=== PATIENT | female | born 1990 | race Caucasian/White ===

== ENCOUNTER → 2023-08-23 15:01 | Outpatient (CLI) | payer OTHER, SELFPAY ==
--- NOTE | ~2023-08-23 | US_ITS ---
EXAMINATION: US OB <= 14 weeks fetus DATE: 08/23/2023 15:24 INDICATION: . Uncertain dates. TECHNIQUE: Real-time transabdominal pelvic ultrasound was performed. COMPARISON: None. FINDINGS: The uterus measures 12.2 x 6.9 x 4.3 cm. There is an intrauterine gestational sac. A yolk sac is iden tified. The crown rump length measures 1.6 cm, which correlates with an estimated gestational age of 8 weeks and 0 day(s) (+/-) 5 day(s). heart motion is identified measuring 178 beats per minute (bpm) by M-mode Doppler. The right ovary is not visualized. The left ovary measures 3.9 x 5.2 x 3.6 cm. There is a 3.1 cm corpus luteum cyst in left ovary. There is no free fluid in the pelvis. IMPRESSION: 1. Single living intrauterine gestation with estimated date of delivery of 04/03/2024. Reviewed, dictated and finalized at location E. INTEGRATION DEVELOPER IMPRESSION: 1. Single living intrauterine gestation with estimated date of delivery of 03/09.
== END ==
PROVIDERS: PCP Obstetrics & Gynecology; Visit Provider Obstetrics & Gynecology
DX: Z34.80 Encounter for supervision of other normal pregnancy, unspecified trimester (principal)
CPT/HCPCS: 76801

== ENCOUNTER 2023-09-21 09:51 | Emergency (ER) | payer OTHER, SELFPAY ==
--- NOTE | 2023-09-21 09:57 | ED.URI ---
HPI - URI/Sore Throat General Chief Complaint: Upper Respiratory Infection Stated Complaint: Shortness of Breath, Congestion,Cough,Bodyache Time Seen by Provider: 09/21/23 09:58 Source: patient Mode of arrival: ambulatory Limitations: no limitations History of Present Illness HPI Narrative: Sheridan is a 32-year-old female patient presenting to the clinic today with complaints of shortness of breath, cough, congestion, and body aches x3 days. She reports this has been going on since Tuesday. Denies any chest pain but does have some slight shortness of breath upon exertion. Patient is 12 weeks . Heart rate is 76 beats per minute, blood pressure is 111/77 with in SpO2 of 100% on room air. Patient is able to speak in full sentences. MD elicited complaint: cough, nasal congestion and other (Shortness of breath, body aches) Related Data Home Medications Medication Instructions Recorded Confirmed No Home Medications 09/21/23 09/21/23 Allergies Allergy/AdvReac Type Severity Reaction Status Date / Time No Known Allergies Allergy Verified 09/21/23 09:58 Review of Systems Review of Systems: Pertinent positives per HPI. Patient denies any fever, chills, rash, headache, visual changes, dizziness, chest pain, palpitations, nausea, vomiting, diarrhea, constipation, abdominal pain, or any urinary issues. [facility] Past Medical History Medical History Cluster headaches Surgical History Surgical History History of gynecological procedure 07/10/2020 - mirena iud insertion 04/25/2023 Removal History of tonsillectomy Hx of appendectomy Family History Family History Other Intracranial aneurysm Malignant carcinoid tumor of lung Social History Social History Smoking status: Never smoker Alcohol intake: current Alcohol use details: socially Substance use: never Substance use type: does not use Lack of Transportation: No Lack of Food: Never True Current Housing: I Have Housing Concerned About Future Housing: No Difficulty Paying Gas/Electric Bills: No Difficulty Paying for Meds: No Education: Bachelor's Degree Difficulty w/ Childcare or Family Care: No Living arrangements: with family Occupation/Education: occupation 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 There is no relevant family history pertinent to the patient complaint. Exam Narrative: General: Well-developed, well nourished, in no apparent distress Head: Normocephalic, atraumatic Eyes: Pupils equally round and reactive to light bilaterally, EOM intact, sclera and conjunctive clear, no discharge, lids normal Ears: TMs intact and clear, ear canals clear, no drainage, grossly hearing normal. Nose: Nares patent, no discharge, no inflammation, no sinus tenderness. Mouth: Oral pharynx without lesions or masses, good dentition, MMM. Neck: Supple, trachea midline, no enlargement of anterior or posterior cervical nodes, no thyroid masses or goiter palpable. Cardio: Regular rate and rhythm, s1 and s2 normal, no murmur appreciated. Resp: Clear to auscultation bilaterally, no rhonchi, rales, wheezing or rubs Course Course Emergency Course: Portions of this record may have been created with voice recognition software. Level of Care: Express Care Visit Vital Signs Vital signs: Vital signs reviewed MDM - URI/Sore Throat MDM Narrative Medical decision making narrative: At the time of visit patient
[2023-09-21 10:04] VITALS: BP 111/77; PULSE 76; RESP 18; TEMP 36.8; O2SAT 100
== END 2023-09-21 10:20 | disposition home or self-care (01) ==
PROVIDERS: Emergency Provider Nurse Practitioner Family; PCP Obstetrics & Gynecology
DX: O98.511 Other viral diseases complicating pregnancy, first trimester (principal); U07.1 COVID-19; Z3A.12 12 weeks gestation of pregnancy
CPT/HCPCS: 87426; 87804; 99213; G0463

== ENCOUNTER 2024-03-06 10:02 | Inpatient (IN) | payer OTHER, SELFPAY ==
[2024-03-06] VITALS (164 sets, daily range): BP systolic 82–138; BP diastolic 46–118; PULSE 73–106; RESP 16–18; TEMP 36.8–37.3; O2SAT 95–100; BMI 31.4
[2024-03-06] MEDS: LACTATED RINGERS 1,000 ML 125 ML IV CONT ×2 (10:52→15:01)
[2024-03-06] MEDS: OXYTOCIN 30 UNITS/NS 500 ML 30 UNITS/500 ML BAG IV CONT (10:52)
[2024-03-06] MEDS: AMPICILLIN 2 GM/NS 100 ML 2 GM/100 ML BAG IVPB (10:53)
[2024-03-06 10:57] LABS: Basophils Percent Auto 0.3 % (0.2-1.2); Eosinophils Absolute Auto 0.1 K/mm3 (0-0.3); Eosinophils Percent Auto 0.8 % (0-4.4); Hematocrit 34.7 % (37.0-47.0); Hemoglobin 11.1 g/dL (12.0-15.0); Immature Granulocyte Absolute 0.16 K/mm3 (0.00-0.031); Immature Granulocyte Percent A 1.2 % (0-0.5); Lymphocytes Absolute Auto 2.12 K/mm3 (0.9-3.2); Lymphocytes Percent Auto 16.1 % (18.3-44.2); Mean Corpuscular Hemoglobin 29.8 pg (26-34); Mean Platelet Volume 9.4 fl (7.4-10.4); Monocytes Absolute Auto 0.6 K/mm3 (0.1-0.6); Monocytes Percent Auto 4.7 % (2.6-8.5); Neutrophils Absolute Auto 10.1 K/mm3 (1.3-6.7); Neutrophils Percent Auto 76.9 % (45.5-73.1); Platelet Count Result 271 k/mm3 (150-375); Red Blood Count 3.73 M/mm3 (4.2-5.4); Red Cell Distribution Width 13.7 % (11.5-14.5); White Blood Count 13.2 K/mm3 (4.5-10.0)
--- NOTE | 2024-03-06 11:03 | LDADM ---
This patient, Sheridan Stone, was admitted to Labor/Delivery/Recovery 105 on 03/06/24 at 10:02. Plans for labor, pain management and were discussed with patient. Patient/family oriented to hospital policies and general routines including ID bracelet, bed and alarms, visiting hours, pain management, procedures, bathroom and other care routines, personal items, smoking policy, room service/diet and guest tray routines, security routines, and visiting hours. Patient/Family are encouraged to report perceived risks to care and to ask questions if they do not understand what they are told or what they should do. See OBIX for further documentation.
[2024-03-06 11:38] LABS: Rapid Plasma Reagin Non-Reactive (NonReactive)
[2024-03-06 11:44] LABS: HIV 1/2 Ab P24 Ag Result Negative (Negative)
--- NOTE | 2024-03-06 11:58 | PM.IMHP ---
H&P: HPI History of Present Illness Date/Time: 03/06/24 11:58 Chief Complaint: rupturedMembranes at 36 weeks Narrative: 33-year-old 4 para 2 left was removed in 2022, EDC 04/03 4, presents at 36 weeks gestation with spontaneous rupture membranes prior to admission. That about 0 200. Her has been uncomplicated her group B strep is pending at this point. She would therefore be prophylaxed with antibiotics PMFSH Past Medical History Medical History Cluster headaches Surgical History Surgical History History of gynecological procedure 07/10/2020 - mirena iud insertion 04/25/2023 Removal History of tonsillectomy Hx of appendectomy Family History Family History Mother Cerebrovascular accident Other Intracranial aneurysm Malignant carcinoid tumor of lung Social History Social History Smoking status: Never smoker Alcohol intake: current Alcohol use details: socially Substance use: never Substance use type: does not use Do You Feel Safe in your Home?: No Lack of Transportation: No Lack of Food: Never True Current Housing: I Have Housing Concerned About Future Housing: No Difficulty Paying Gas/Electric Bills: No Difficulty Paying for Meds: No Currently Unemployed: No Education: Bachelor's Degree Difficulty w/ Childcare or Family Care: No Living arrangements: with family Occupation/Education: occupation 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 Gender identity (if verbalized by the patient): Female Sexual Orientation (if Verbalized by the Patient): Straight or Heterosexual Spiritual care concerns: No Meds Home Medications and Allergies Home Medications Medication Instructions Recorded Confirmed Type vits no.126-ferrous fum 1 tablet PO DAILY 03/05/24 03/05/24 History 28 mg iron-folic acid 800 mcg tablet (Classic ) Allergies Allergy/AdvReac Type Severity Reaction Status Date / Time No Known Allergies Allergy Verified 03/05/24 12:25 Vital Signs Vital Signs - 24 hr 03/06/24 11:02 03/06/24 11:01 Temperature 98.8 F Pulse Rate 106 H Respiratory Rate 18 Blood Pressure 117/70 Oxygen Delivery Room Air Exam Const: General: cooperative, healthy appearing and comfortable Nutritional Appearance: average body habitus Orientation/consciousness: oriented to person, oriented to place and oriented to time Resp: Effort & Inspection: normal respiratory effort Cardio: Rate: regular rate Rhythm: regular rhythm Heart sounds: S1 normal heart sound present and S2 normal heart sound present GI: Inspection: normal to inspection : External Female Exam: normal external appearance Speculum Exam - Vagina: normal appearance of the vagina Speculum Exam - Cervix: normal appearance of the cervix ( cervix 50/2. Clear fluid seen. FHTs were reassuring) H&P: Results Labs Labs: Short CBC 03/06/24 Range/Units 10:33 WBC 13.2 H (4.5-10.0) K/mm3 Hgb 11.1 L (12.0-15.0) g/dL Hct 34.7 L (37.0-47.0) % Plt Count 271 (150-375) k/mm3 Assessment and Plan Assessment and plan (1) premature rupture of membranes: Code(s): O42.919 - premature rupture of membranes, unspecified as to length of time between rupture and onset of labor, unspecified trimester Status: Acute (2) Observation of child for suspected group B streptococcal infection, mother's Group B status unknown: Code(s): Z03.89 - Encounter for observation for other suspected diseases and conditions ruled out Status: Acute Assessment and Plan: group B strep prophylaxis will be undertaken. Spontaneous vaginal delivery is expected. Will begin Pit
--- NOTE | 2024-03-06 14:42 | PM.OBPNLAB ---
Pain Control Date/time seen: 03/06/24 14:42 Pain control: tolerating well and epidural Pelvic Exam Amniotic membrane status: Leaking
--- NOTE | 2024-03-06 15:06 | WPDANESEPPF ---
Anes - Initial Pre Proc Eval Procedure: labor epidural Date/Time: 03/06/24 15:06 Surgeon: Brien Tamayo MD Pre Op Diagnosis: labor pain Pre Op Diagnosis: Leaking Patient Data Age: 33 Gender: F Height: 1.57 m Weight: 78 kg Last Vital Signs Temp 37.3 C 03/06/24 13:15 Pulse 82 03/06/24 14:30 Resp 16 03/06/24 13:15 BP 111/63 03/06/24 14:30 Pulse Ox 96 03/06/24 14:40 O2 Del Method Room Air 03/06/24 11:02 Allergies Allergy/AdvReac Type Severity Reaction Status Date / Time No Known Allergies Allergy Verified 03/05/24 12:25 Home Medications Medication Instructions Recorded Confirmed Type vits no.126-ferrous fum 1 tablet PO DAILY 03/05/24 03/05/24 History 28 mg iron-folic acid 800 mcg tablet (Classic ) Laboratory Tests 03/06/24 10:33 WBC 13.2 H K/mm3 (4.5-10.0) RBC 3.73 L M/mm3 (4.2-5.4) Hgb 11.1 L g/dL (12.0-15.0) Hct 34.7 L % (37.0-47.0) MCV 93.0 fl (80-100) MCH 29.8 pg (26-34) MCHC 32.0 g/dl (32-36) RDW 13.7 % (11.5-14.5) Plt Count 271 k/mm3 (150-375) MPV 9.4 fl (7.4-10.4) Immature Gran % (Auto) 1.2 H % (0-0.5) Neut % (Auto) 76.9 H % (45.5-73.1) Lymph % (Auto) 16.1 L % (18.3-44.2) Lawrence % (Auto) 4.7 % (2.6-8.5) Eos % (Auto) 0.8 % (0-4.4) Baso % (Auto) 0.3 % (0.2-1.2) Lymph # (Auto) 2.12 K/mm3 (0.9-3.2) Lawrence # (Auto) 0.6 K/mm3 (0.1-0.6) Eos # (Auto) 0.1 K/mm3 (0-0.3) Baso # (Auto) 0.0 K/mm3 (0.0-0.1) Abs Immat Gran (auto) 0.16 H K/mm3 (0.00-0.031) Absolute Neuts (auto) 10.1 H K/mm3 (1.3-6.7) Absolute Nucleated RBC 0.000 K/mm3 (0.0-0.012) Nucleated RBC % 0.0 % (0.0-0.2) RPR Non-reactive (NonReactive) HIV 1&2 Ab/P24 Ag 4thGn Negative (Negative) Blood Type A Positive Antibody Screen Negative Patient hx anesthesia problems: none Family hx anesthesia problems: none Results Review: All pre-operative results and documents have been reviewed as part of the pre-operative evaluation. [facility] Past Medical History Medical History Cluster headaches Surgical History Surgical History History of gynecological procedure 07/10/2020 - mirena iud insertion 04/25/2023 Removal History of tonsillectomy Hx of appendectomy Family History Family History Mother Cerebrovascular accident Other Intracranial aneurysm Malignant carcinoid tumor of lung Social History Social History Smoking status: Never smoker Alcohol intake: current Alcohol use details: socially Substance use: never Substance use type: does not use Do You Feel Safe in your Home?: No Lack of Transportation: No Lack of Food: Never True Current Housing: I Have Housing Concerned About Future Housing: No Difficulty Paying Gas/Electric Bills: No Difficulty Paying for Meds: No Currently Unemployed: No Education: Bachelor's Degree Difficulty w/ Childcare or Family Care: No Living arrangements: with family Occupation/Education: occupation 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 Informed Consent: The patient's anesthetic plan and its attend
[2024-03-06] MEDS: AMPICILLIN 1 GM/NS 50 ML 1 GM/50 ML BAG IVPB ×3 (15:22→23:40)
[2024-03-06] MEDS: LORATADINE 10 MG TABLET PO (19:42)
[2024-03-07] VITALS (352 sets, daily range): BP systolic 92–165; BP diastolic 47–102; PULSE 72–231; TEMP 36.6–37.9; O2SAT 93–100
[2024-03-07] MEDS: CALCIUM CARBONATE (TUMS) 500 MG (200 MG ELEMENTAL) 400 MG PO (01:31)
[2024-03-07] MEDS: AMPICILLIN 1 GM/NS 50 ML 1 GM/50 ML BAG IVPB ×4 (03:41→16:28)
[2024-03-07] MEDS: diphenhydrAMINE HCl INJ 50 MG/ML VIAL 25 MG IV PUSH (05:08)
--- NOTE | 2024-03-07 06:09 | PM.OBPNLAB ---
Pain Control Date/time seen: 03/07/24 06:09 Pain control: tolerating well and epidural Pelvic Exam Dilation (cm): 4 Effacement (%): 80 station: -2 Amniotic membrane status: Leaking
[2024-03-07] MEDS: LACTATED RINGERS 1,000 ML 125 ML IV CONT ×3 (08:07→19:23)
[2024-03-07] MEDS: ACETAMINOPHEN 500 MG TABLET 1000 MG PO (08:36)
[2024-03-07] MEDS: OXYTOCIN 30 UNITS/NS 500 ML 30 UNITS/500 ML BAG IV CONT (11:21)
--- NOTE | 2024-03-07 11:38 | PM.OBPNLAB ---
Pain Control Date/time seen: 03/07/24 11:38 Pain control: tolerating well and epidural Pelvic Exam Dilation (cm): 6 Effacement (%): 80 station: -2 Amniotic membrane status: Leaking
--- NOTE | 2024-03-07 11:51 | PM.OBPNLAB ---
Pain Control Date/time seen: 03/07/24 11:51 Pain control: tolerating well and epidural Pelvic Exam Dilation (cm): 6 Effacement (%): 80 station: -2 Amniotic membrane status: Leaking
--- NOTE | 2024-03-07 21:14 | PM.OBPRVD ---
OB - Vaginal Delivery Note Procedure Delivery date: 03/07/24 Events: Premature Rupture of Membranes Induction method: None Delivery augmentation: Pitocin Delivery monitor: External FHT and Internal Uterine Route of delivery: Episiotomy description: None Laceration Description: None Quantitative Blood Loss (ml): 61 Anesthesia type: Epidural Disposition: Floor Baby Date of : 03/07/24 Time of : 20:51 Gestational Age by Date: 36 Infant gender: Male presentation: vertex position: Right Occiput Anterior Placenta delivery description: Spontaneous Cord Vessel Description: 3 Vessels score one minute: 9 score five minutes: 9
[2024-03-07] MEDS: ACETAMINOPHEN 500 MG TABLET 1000 MG (21:15)
--- NOTE | 2024-03-07 21:15 | PM.DS ---
DS: Admitting Diagnosis Discharge Date 03/09/2024 Admitting Diagnosis rupture membranes DS: Discharge Diagnosis Discharge Diagnosis (1) premature rupture of membranes: Code(s): O42.919 - premature rupture of membranes, unspecified as to length of time between rupture and onset of labor, unspecified trimester Status: Acute (2) Observation of child for suspected group B streptococcal infection, mother's Group B status unknown: Code(s): Z03.89 - Encounter for observation for other suspected diseases and conditions ruled out Status: Acute DS: Summary Hospital Course Reason for hospitalization: patient was admitted at 36 weeks gestation with spontaneous rupture membranes and unknown group B strep status. Hospital Course: Pitocin augmentation was begun she had a very long labor with mildly elevated blood pressures. She did receive 8 doses of ampicillin prophylactically. She spontaneously delivered the baby on 03/07/2024 at 8:51 p.m.. Hospital course thereafter was unremarkable. She remained afebrile. She was up, voiding without difficulty, eating regular diet, ambulating, generally without complaints Time Spent with Patient Time attestation: Total time spent providing and/or coordinating discharge services: Exam Const: General: cooperative, healthy appearing and comfortable Nutritional Appearance: average body habitus Orientation/consciousness: oriented to person, oriented to place and oriented to time Resp: Effort & Inspection: normal respiratory effort Cardio: Rate: regular rate Rhythm: regular rhythm Heart sounds: S1 normal heart sound present and S2 normal heart sound present GI: Inspection: normal to inspection Discharge Plan Discharge Attending physician on discharge: Brien Hilario Discharging Clinician: Brien Hilario Patient Disposition: Home, Self-Care Activity: may shower and no straining Diet: heart healthy Wound Care Instructions: follow printed instructions Patient Instructions: Antibiotic Form Stand Alone Forms: General Discharge Information Follow-up/Referrals: Brien Hilario MD [Physician] - Discharge Medications: Continued Classic 28 mg iron- 800 mcg Tablet 1 tablet PO DAILY Date of admission: 03/06/24 10:02 Primary Care Provider: Reji Mayfield Admitting Provider: Brien Hilario Attending physician on admission: Brien Hilario Condition: Stable
[2024-03-07] MEDS: OXYTOCIN 30 UNITS/NS 500 ML 30 UNITS/500 ML BAG 125 UNITS IV CONT (21:18)
[2024-03-07] MEDS: BENZOCAINE 20% AER SPR (*SP) 56 GM CAN 1 SPRAY TOPICAL (22:58)
[2024-03-07] MEDS: WITCH HAZEL 40 PADS 1 PAD TOPICAL (22:58)
[2024-03-08] VITALS: BP 123/60; PULSE 84; RESP 16; TEMP 37; O2SAT 98
[2024-03-08] MEDS: IBUPROFEN 600 MG TABLET PO ×2 (00:06→19:01)
[2024-03-08 04:00] VITALS: BP 117/53; PULSE 71; RESP 18; TEMP 36.8; O2SAT 99
--- NOTE | 2024-03-08 04:48 | PM.OBPNVD ---
OB - PN: Subj Subjective Date/time seen: 03/08/24 04:48 Patient comments: no complaints and pain well controlled baby status: doing well OB - PN: Obj Data Labs 03/06/24 10:33 OB - PN A/P Plan day: 1 Plan: routine care Time Spent With Patient Time: Total time spent is greater than 50% in coordination of care (as documented) at patient's floor/unit and/or counseling patient: Time with patient: less than 15 minutes Exam Const: General: cooperative, healthy appearing and comfortable Nutritional Appearance: average body habitus Orientation/consciousness: oriented to person, oriented to place and oriented to time Resp: Effort & Inspection: normal respiratory effort Cardio: Rate: regular rate Rhythm: regular rhythm Heart sounds: S1 normal heart sound present and S2 normal heart sound present GI: Inspection: normal to inspection
[2024-03-08 05:26] LABS: Hematocrit 33.6 % (37.0-47.0); Hemoglobin 10.5 g/dL (12.0-15.0)
[2024-03-08] MEDS: DOCUSATE SODIUM 100 MG CAPSULE PO (07:11)
[2024-03-08] MEDS: MULTIVIT/MIN/PREN/FOL AC/IRON TABLET 1 TAB PO (07:12)
[2024-03-08] MEDS: ACETAMINOPHEN 325 MG TABLET 650 MG PO ×2 (07:12→13:21)
[2024-03-08 07:15] VITALS: BP 109/51; PULSE 77; RESP 16; TEMP 36.4; O2SAT 99
--- NOTE | 2024-03-08 12:52 | WPDANLDPN2 ---
Anes-Prog Note L&D Date/Time: 03/08/24 12:52 Neuro status: Neuro function grossly intact. Vital Signs: Last Vital Signs Temp 36.4 C L 03/08/24 07:15 Pulse 77 03/08/24 07:15 Resp 16 03/08/24 07:15 BP 109/51 L 03/08/24 07:15 Pulse Ox 99 03/08/24 07:15 O2 Del Method Room Air 03/08/24 07:15 Pain score (VAS): 0 I/O: Intake & Output 03/07/24 03/08/24 03/08/24 23:59 07:59 15:59 Intake Total 1000 Balance 1000 Patient feedback: Patient satisfied with anesthetic care.
[2024-03-08 16:15] VITALS: BP 112/62; PULSE 81; RESP 16; TEMP 37.7; O2SAT 99
[2024-03-08 20:50] VITALS: BP 119/80; PULSE 74; RESP 18; TEMP 37.1; O2SAT 100
--- NOTE | 2024-03-09 05:37 | PM.OBPNVD ---
OB - PN: Subj Subjective Date/time seen: 03/09/24 05:37 Patient comments: no complaints and pain well controlled baby status: doing well OB - PN: Obj Data Labs 03/08/24 04:18 OB - PN A/P Plan day: 2 Plan: routine care and discharge home (ncb if needed) Time Spent With Patient Time: Total time spent is greater than 50% in coordination of care (as documented) at patient's floor/unit and/or counseling patient: Time with patient: less than 15 minutes Exam Const: General: cooperative, healthy appearing and comfortable Nutritional Appearance: average body habitus Orientation/consciousness: oriented to person, oriented to place and oriented to time Resp: Effort & Inspection: normal respiratory effort Cardio: Rate: regular rate Rhythm: regular rhythm Heart sounds: S1 normal heart sound present and S2 normal heart sound present GI: Inspection: normal to inspection
[2024-03-09 07:50] VITALS: BP 110/71; PULSE 70; RESP 18; TEMP 37.2; O2SAT 98
[2024-03-09] MEDS: MULTIVIT/MIN/PREN/FOL AC/IRON TABLET 1 TAB PO (09:05)
[2024-03-09] MEDS: DOCUSATE SODIUM 100 MG CAPSULE PO (09:05)
--- NOTE | 2024-03-09 10:19 | PC.NURSE ---
Consulted with patient to assess needs related to . Patient reports that she is going to primarily bottle feed infant and denies any additional education regarding . Reported to the Primary RN.
[2024-03-12 10:32] VITALS: BP 131/80; PULSE 72; RESP 18; TEMP 37.1; O2SAT 100
== END 2024-03-09 16:00 | disposition home or self-care (01) | DRG 805 ==
LOC: ANHLDR 03-07 21:18 → ANHOB2 03-08
PROVIDERS: Admitting Provider Obstetrics & Gynecology; PCP Emergency Medicine; Visit Provider Obstetrics & Gynecology
DX: O42.013 Preterm premature rupture of membranes, onset of labor within 24 hours of rupture, third trimester (principal); O60.14X0 Preterm labor third trimester with preterm delivery third trimester, not applicable or unspecified; Z37.0 Single live birth; Z3A.36 36 weeks gestation of pregnancy
CPT/HCPCS: 36415; 84112; 85014; 85018; 85025; 86592; 86703; 86850; 86900; 86901; A9270; G0432; J0290; J1200; J2590; J2795; J7120

== ENCOUNTER 2025-01-24 13:08 | Observation (INO) | payer OTHER, SELFPAY ==
[2025-01-24] VITALS (48 sets, daily range): BP systolic 79–119; BP diastolic 57–79; PULSE 96–128; RESP 20–24; TEMP 36.8–36.9; O2SAT 96–100; BMI 29.0
--- OUTSIDE RECORDS SUMMARY | 2025-01-24 13:36 | XMS_ITS | Continuity of Care Document ---
Author Organization [facility] Address [address] [place] [address] [place] [address] Phone Care Team Providers Care Jewel Inserter Name Role Phone Reji Mayfield MD Unavailable Unavailable Allergies, Adverse Reactions, Alerts Substance Reaction Status Criticality cefaclor Active No Information Medications Medication Instructions Dosage Effective Dates (start - stop) Status Comments Adderall 20 mg tablet take 1 tablet by o ral route 2 times every day 20 MG - Active Procedures Procedure Date OFFICE/OUTPATIENT VISIT, EST PREV VISIT, EST, AGE 18-39 OFFICE/OUTPATIENT VISIT, EST PREV VISIT, EST, AGE 18-39 OFFICE/OUTPATIENT VISIT, EST OFFICE/OUTPATIENT VISIT, EST OFFICE/OUTPATIENT VISIT, EST OFFICE/OUTPATIENT VISIT, EST OFFICE/OUTPATIENT VISIT, EST OFFICE/OUTPATIENT VISIT, EST OFFICE/OUTPATIENT VISIT, EST OFFICE/OUTPATIENT VISIT, EST OFFICE/OUTPATIENT VISIT, EST PREV VISIT, EST, AGE 18-39 OFFICE/OUTPATIENT VISIT, EST OFFICE/OUTPATIENT VISIT, EST OFFICE/OUTPATIENT VISIT, EST OFFICE/OUTPATIENT VISIT, EST PREV VISIT, EST, AGE 18-39 OFFICE/OUTPATIENT VISIT, EST OFFICE/OUTPATIENT VISIT, EST OFFICE/OUTPATIENT VISIT, EST OFFICE/OUTPATIENT VISIT, EST PREV VISIT, EST, AGE 18-39 OFFICE/OUTPATIENT VISIT, EST OFFICE/OUTPATIENT VISIT, EST OFFICE/OUTPATIENT VISIT, EST OFFICE/OUTPATIENT VISIT, EST OFFICE/OUTPATIENT VISIT, EST PREV VISIT, NEW, AGE 18-39 OFFICE/OUTPATIENT VISIT, NEW Advance Directives Directive Yes / No Effective Date File Name No Information Encounters Encounter Description Practice Location Reason(s) For Visit Diagnoses Date Provider Providers Copied on Encounter [facility], [address], [place], [place], [address], [place] tel:[phone] [facility] No Information 4 Chaparro Mendoza. [address], [place], [place], [address] , [place]. tel:[phone] OFFICE/OUTPA TIENT VISIT, EST [facility], [address] [place], [place], [address], [place] tel:[phone] [facility] ADD (chief complaint) Attention deficit 4 Chaparro Mendoza. [address], [place], [place], [address] , [place]. tel:[phone] PREV VISIT, EST, AGE 18-39 [facility], [address], [place], [place], [address], [place] tel:[phone] [facility] Medicine physical (chief complaint) Encounter for general adult medical examination without abnormal findings 4 Chaparro Mendoza. [address], [place], [place], [address] , [place]. [phone] OFFICE/OUTPA TIENT VISIT, EST [facility], [address], [place], [address], [place] tel:[phone] [facility] ADD (chief complaint) Attention deficit 3 Chaparro Mendoza. [address], [place], [address] , [place]. tel:[phone] PREV VISIT, EST, AGE 18-39 [facility], [address], [place], [place], [address], [place] tel:[phone] [facility] Medicine physical (chief complaint) Encounter for general adult medical exam w abnormal findingsAttention deficit 3 Chaparro Mendoza. [address], [place], [place], [address] , [place]. tel:[phone] OFFICE/OUTPA TIENT VISIT, [facility], [address], [place], [place], [address], [place] tel:[phone] [facility] ADD (chief complaint) Attention deficit 3 Chaparro Mendoza. [address], [place], [address] , [place]. tel:[phone] OFFICE/OUTPA TIENT VISIT, EST [facility], [address], [place], [address], [place] tel:[phone] [facility] ADD (chief complaint) Attention deficit 3 Chaparro Mendoza. [address], [place], [address] , [place]. tel:[phone] OFFICE/OUTPA TIENT VISIT, [facility], [address], [place], [address], [place] tel:[phone] [facility] ADD (chief complaint) Attention deficit 3 Chaparro Mendoza. [address], [place], [address] , [place]. tel:[phone] OFFICE/OUTPA TIENT VISIT, [facility], [address], [place], [place], [address], [place] tel:[phone] [facility] ADD (chief complaint) Attention deficit 3 Chaparro Mendoza. [address], [place], [address] , [place]. tel:[phone] OFFICE/OUTPA TIENT VISIT, EST [facility], [address], [place], [address], [place] tel:[phone] [facility] ADD (chief complaint) Attention deficit 3 Chaparro Mendoza. [address], [place], [address] , [place]. tel:[phone] OFFICE/OUTPA TIENT VISIT, EST [facility], [address], [place], [place], [address], [place] tel:[phone] [facility] Medicine ADD (chief complaint) Attention deficit 3 Chaparro Mendoza. [address], [place], [address] , [place]. tel:[phone] OFFICE/OUTPA TIENT VISIT, [facility], [address], [place], [address], [place] tel:[phone] [facility] ADD (chief complaint) Attention deficit 3 Mayfield Reji. [address], [place], [address] , [place]. tel:[phone] OFFICE/OUTPA TIENT VISIT, [facility], [address], [place], [address], [place] tel:[phone] [facility] Medicine ADD (chief complaint) Attention deficit 3 Chaparro Mendoza. [address], [place], [address] , [place]. tel:[phone] PREV VISIT, EST, AGE 18-39 [facility], [address], [place], [address], [place] tel:[phone] [facility] Medicine physical (chief complaint) Encounter for general adult medical examination without abnormal findings 3 Chaparro Mendoza. [address], [place], [address] , [place]. tel:[phone] OFFICE/OUTPA TIENT VISIT, [facility], [address], [place], [address], [place] tel:[phone] [facility] ADD (chief complaint) Attention deficit 2 Mayfield Reji. [address], [place], [address] , [place]. tel: [phone] OFFICE/OUTPA TIENT VISIT, EST [facility], [address], [place], [address], [place] tel:[phone] [facility] dysuria1 (chief complaint) Acute cystitis without hematuria 2 Mayfield Reji. [address], [place], [address] , [place]. tel: [phone] OFFICE/OUTPA TIENT VISIT, [facility], [address], [place], [address], [place] tel:[phone] [facility] ADD (chief complaint) Attention deficit 2 Mayfield Reji. [address], [place], [address] , [place]. tel: [phone] OFFICE/OUTPA TIENT VISIT, EST [facility], [address], [place], [address], [place] tel:[phone] [facility] ADD (chief complaint) Attention deficit 2 Mayfield Reji. [address], [place], [address] , [place]. tel:[phone] PREV VISIT, EST, AGE 18-39 [facility], [address], [place], [address], [place] tel:[phone] [facility] physical (chief complaint) Encounter for general adult medical examination without abnormal findings 1 Mayfield Reji. [address], [place], [address] , [place]. tel:[phone] OFFICE/OUTPA TIENT VISIT, [facility], [address], [place], [address], [place] tel:[phone] [facility] ADD (chief complaint) Attention deficit 1 Chaparro Jeffery [address], [place], [address] , [place]. tel:[phone] OFFICE/OUTPA TIENT VISIT, EST [facility], [address], [place], [address], [place] tel:[phone] [facility] ADD (chief complaint) headache1 (chief complaint) weight loss1 (chief complaint) Attention deficitMigraineAbno rmal weight loss 1 Chaparro Jeffery [address], [place], [place], [address] , [place]. tel:[phone] OFFICE/OUTPA TIENT VISIT, [facility], [address], [place], [address], [place] tel:[phone] [facility] ADD (chief complaint) migraine1 (chief complaint) MigraineAttention deficit 1 Chaparro Mendoza. [address], [place], [address] , [place]. tel:[phone] OFFICE/OUTPA TIENT VISIT, EST [facility], [address], [place], [address], [place] tel:[phone] [facility] headache1 (chief complaint) ADD (chief complaint) Attention deficitMenstrual migraine, without refractory migraine, without status migrainosus 1 Chaparro Mendoza. [address], [place], [address] , [place]. tel:[phone] PREV VISIT, EST, AGE 18-39 [facility], [address], [place], [address], [place] tel:[phone] [facility] Physical (chief complaint) Encounter for general adult medical examination without abnormal findings 0 Chaparro Mendoza. [address], [place], [address] , [place]. tel:[phone] OFFICE/OUTPA TIENT VISIT, [facility], [address], [place], [address], [place] tel:[phone] [facility] migraine headache1 (chief complaint) ADD (chief complaint) Menstrual migraine, without refractory migraine, without status migrainosusAttentio n deficit 0 Chaparro Mendoza. [address], [place], [address] , [place]. [phone] OFFICE/OUTPA TIENT VISIT, [facility], [address], [place], [address], [place] tel:[phone] [facility] ADD (chief complaint) headache1 (chief complaint) Attention deficitMigraine 0 Chaparro Mendoza. [address], [place], [address] , [place]. [phone] OFFICE/OUTPA TIENT VISIT, [facility], [address], [place], [address], [place] tel:[phone] [facility] ADD (chief complaint) migraine1 (chief complaint) Attention deficitMigraine 0 Chaparro Mendoza. [address], [place], [address] , [place]. [phone] Referring Provider: Reji Mayfield [address], [place], [place], [address]. tel:[phone] OFFICE/OUTPA TIENT VISIT, [facility], [address], [place], [address], [place] tel:[phone] [facility] ADD (chief complaint) headache1 (chief complaint) MigraineAttention deficit 9 Chaparro Mendoza. [address], [place], [address] , [place]. [phone] Referring Provider: Reji Mayfield [address], [place], [place], [address]. tel:[phone] OFFICE/OUTPA TIENT VISIT, EST [facility], [address], [place], [address], [place] tel:[phone] [facility] Medicine ADD (chief complaint) migraine1 (chief complaint) Attention deficitMigraine 9 Chaparro Mendoza. [address], [place], [address] , [place]. tel:[phone] Referring Provider: Reji Mayfield [address], [place], [address]. tel:[phone] PREV VISIT, NEW, AGE 18-39 [facility], [address], [place], [address], [place] tel:[phone] [facility] Physical (chief complaint) Encounter for general adult medical exam w abnormal findingsMigraineAtt ention deficit 9 Chaparro Mendoza. [address] [facility] [address], [place], [place], [address] , [place]. tel:[phone] Referring Provider: Reji Mayfield [address] [facility] [address], [place], [place], [address]. tel:[phone] Family History Family Member Type Diagnosis Age At Onset Brother Problem (finding) Alive and well Mother Problem (finding) Alive and well Father Problem (finding) Alive and well Payers Payer name Insurance type Covered green party ID Authoriza tion(s) No Information Social History Type Description Quantity Date Captured Comments Alcohol Use Details Unknown Caffeine Use Details Unknown Tobacco Use Status No Information Smoking Status No Information Sex Female Chief Complaint And Reason For Visit No Information Plan Of Treatment Date Type Action Status Goal Tobacco cessation counseling completed Goal Tobacco cessation counseling completed Goal Tobacco cessation counseling completed Goal Special diet education compl eted History Of Present Illness Encounter Date Complaint History Of Prese nt Illness ADD Patient has ADD. Patient has inattentive type. Patient feels scatterbrained. Patient feel poor focus and difficulty completing tasks. Patient states that Adderall is helping with symptoms. Patient feels more focused. Pt feels more energy. Patient denies any headache, dry mouth, headache, chest pain. Patient denies any appetite loss. physical Pt needs annual physical pt is 12 days Pt underwent vaginal delivery Pt is NOT breast feeding Pt wants to restart adderall. Pt will start OCP soon Pt denies any other complaints ADD Patient has ADD. Patient has inattentive type. Patient feels scatterbrained. Patient feel poor focus and difficulty completing tasks. Patient states that Adderall is helping with symptoms. Patient feels more focused. Pt feels more energy. Patient denies any headache, dry mouth, headache, chest pain. Patient denies any appetite loss. Pt states that sometimes she does not feel the 2nd dose of adderall last long enough Pt is a caser teacher now physical Pt needs annual physical. Patient has ADD. Patient has inattentive type. Patient feels scatterbrained. Patient feel poor focus and difficulty completing tasks. Patient states that Adderall is helping with symptoms. Patient feels more focused. Pt feels more energy. Patient denies any headache, dry mouth, headache, chest pain. Patient denies any appetite loss. Pt denies any headache or any other complaints ADD Patient has ADD. Patient has inattentive type. Patient feels scatterbrained. Patient feel poor focus and difficulty completing tasks. Patient states that Adderall is helping with symptoms. Patient feels more focused. Pt feels more energy. Patient denies any headache, dry mouth, headache, chest pain. Patient denies any appetite loss. ADD Patient has ADD. Patient has inattentive type. Patient feels scatterbrained. Patient feel poor focus and difficulty completing tasks. Patient states that Adderall is helping with symptoms. Patient feels more focused. Pt feels more energy. Patient denies any headache, dry mouth, headache, chest pain. Patient denies any appetite loss. ADD Patient has ADD. Patient has inattentive type. Patient feels scatterbrained. Patient feel poor focus and difficulty completing tasks. Patient states that Adderall is helping with symptoms. Patient feels more focused. Pt feels more energy. Patient denies any headache, dry mouth, headache, chest pain. Patient denies any appetite loss. ADD Patient has ADD. Patient has inattentive type. Patient feels scatterbrained. Patient feel poor focus and difficulty completing tasks. Patient states that Adderall is helping with symptoms. Patient feels more focused. Pt feels more energy. Patient denies any headache, dry mouth, headache, chest pain. Patient denies any appetite loss. ADD Patient has ADD. Patient has inattentive type. Patient feels scatterbrained. Patient feel poor focus and difficulty completing tasks. Patient states that Adderall is helping with symptoms. Patient feels more focused. Pt feels more energy. Patient denies any headache, dry mouth, headache, chest pain. Patient denies any appetite loss. ADD Patient has ADD. Patient has inattentive type. Patient feels scatterbrained. Patient feel poor focus and difficulty completing tasks. Patient states that Adderall is helping with symptoms. Patient feels more focused. Pt feels more energy. Patient denies any headache, dry mouth, headache, chest pain. Patient denies any appetite loss. ADD Patient has ADD. Patient has inattentive type. Patient feels scatterbrained. Patient feel poor focus and difficulty completing tasks. Patient states that Adderall is helping with symptoms. Patient feels more focused. Pt feels more energy. Patient denies any headache, dry mouth, headache, chest pain. Patient denies any appetite loss. ADD Patient has ADD. Patient has inattentive type. Patient feels scatterbrained. Patient feel poor focus and difficulty completing tasks. Patient states that Adderall is helping with symptoms. Patient feels more focused. Pt feels more energy. Patient denies any headache, dry mouth, headache, chest pain. Patient denies any appetite loss. physical Pt needs annual physical pt has ADD Pt doing ok with adderall Pt feels more focused with adderall Pt needs it refilled Pt denies any other complaints ADD Patient has ADD. Patient has inattentive type. Patient feels scatterbrained. Patient feel poor focus and difficulty completing tasks. Patient states that Adderall is helping with symptoms. Patient feels more focused. Pt feels more energy. Patient denies any headache, dry mouth, headache, chest pain. Patient denies any appetite loss. dysuria1 Pt c/o acute ons et of dysuria, urinary frequency, urgency, low pelvic pressure since yesterday morning. Pt denies any flank pain, fever, chill. Pt states that she has typical UTI symptoms. ADD Patient has ADD. Patient has inattentive type. Patient feels scatterbrained. Patient feel poor focus and difficulty completing tasks. Patient states that Adderall is helping with symptoms. Patient feels more focused. Pt feels more energy. Patient denies any headache, dry mouth, headache, chest pain. Patient denies any appetite loss. Pt is studying for her BA for [employer] at [employer] now ADD Patient has ADD. Patient has inattentive type. Patient feels scatterbrained. Patient feel poor focus and difficulty completing tasks. Patient states that Adderall is helping with symptoms. Patient feels more focused. Pt feels more energy. Patient denies any headache, dry mouth, headache, chest pain. Patient denies any appetite loss. physical Pt needs annual physical. Patient has ADD. Patient has inattentive type. Patient feels scatterbrained. Patient feel poor focus and difficulty completing tasks. Patient states that Adderall is helping with symptoms. Patient feels more focused. Pt feels more energy. Patient denies any headache, dry mouth, headache, chest pain. Patient denies any appetite loss. Pt states that she feels that current dose of adderall is losing effectiveness and she thinks that current dose only works several hours in the morning and she feels crash feeling around the afternoon. Pt denies any other complaints ADD Patient has ADD. Patient has inattentive type. Patient feels scatterbrained. Patient feel poor focus and difficulty completing tasks. Patient states that Adderall is helping with symptoms. Patient feels more focused. Pt feels more energy. Patient denies any headache, dry mouth, headache, chest pain. Patient denies any appetite loss. weight loss1 Pt lost 10 pound s since two years ago. Pt states that 133 was over weight for her and her normal baseline is around 120s Pt denies any nausea, vomiting, appetite loss, early satiety, abd pain. GERD, diarrhea, constipation, change of bowel, etc ADD Patient has ADD. Patient has inattentive type. Patient feels scatterbrained. Patient feel poor focus and difficulty completing tasks. Patient states that Adderall is helping with symptoms. Patient feels more focused. Pt feels more energy. Patient denies any headache, dry mouth, headache, chest pain. Patient denies any appetite loss. headache1 Pt has not had a ny migraine since starting IUD. Pt has hormone related headache. Pt has not had period sine on IUD. pt no longer needs to take imitrex due to lack of headache ADD Patient has ADD. Patient has inattentive type. Patient feels scatterbrained. Patient feel poor focus and difficulty completing tasks. Patient states that Adderall is helping with symptoms. Patient feels more focused. Pt feels more energy. Patient denies any headache, dry mouth, headache, chest pain. Patient denies any appetite loss. migraine1 Pt denies any he adache while on IUD ADD Patient has ADD. Patient has inattentive type. Patient feels scatterbrained. Patient feel poor focus and difficulty completing tasks. Patient states that Adderall is helping with symptoms. Patient feels more focused. Pt feels more energy. Patient denies any headache, dry mouth, headache, chest pain. Patient denies any appetite loss. headache1 Pt has not had a ny headache since on IUD. Pt has menstrual migraine. Physical Pt needs annual physical. Pt has chronic menstrual migraines Pt takes imitrex PRN during migraine headache during her period. Pt is on OCP Pt could not tolerate topamax, which made her sick to her stomach. Pt has ADD, Pt doing ok with adderall. Pt denies any other complaints. pT denies any acute headache ADD Patient has ADD. Patient has inattentive type. Patient feels scatterbrained. Patient feel poor focus and difficulty completing tasks. Patient states that Adderall is helping with symptoms. Patient feels more focused. Pt feels more energy. Patient denies any headache, dry mouth, headache, chest pain. Patient denies any appetite loss. migraine headache1 Pt has menstr ual migraine the week before and the week of her period chronically Pt had normal MRi of brain several years ago for her headache .pt denies any headache rest of the month pt on average takes about 9 imitrex monthly Pt states that she has photophobia and nausea and headache almost daily the week before and the week during her period monthly .Pt states that imitrex does take the headache away Pt denies any head injury or waking up at night with headache Pt denies any worsening headache or acute headache headache1 Pt has menstrual induced migraine, Pt denies any acute headache, Pt c/o throbbing headache with photophobia with nausea. Pt states that imitrex does help Pt had negative MRi of brain in the past Pt denies any worsening headache ADD Patient has ADD. Patient has inattentive type. Patient feels scatterbrained. Patient feel poor focus and difficulty completing tasks. Patient states that Adderall is helping with symptoms. Patient feels more focused. Pt feels more energy. Patient denies any headache, dry mouth, headache, chest pain. Patient denies any appetite loss. migraine1 Pt has migraine headache for years pt denies any acute headache. Pt only has headache before her period. Pt doing ok with imitrex PRN ADD Patient has ADD. Patient has inattentive type. Patient feels scatterbrained. Patient feel poor focus and difficulty completing tasks. Patient states that Adderall is helping with symptoms. Patient feels more focused. Pt feels more energy. Patient denies any headache, dry mouth, headache, chest pain. Patient denies any appetite loss. ADD Patient has ADD. Patient has inattentive type. Patient feels scatterbrained. Patient feel poor focus and difficulty completing tasks. Patient states that Adderall is helping with symptoms. Patient feels more focused. Pt feels more energy. Patient denies any headache, dry mouth, headache, chest pain. Patient denies any appetite loss. headache1 Pt has menstrual migraine. pt only has migraine around period time. Pt denies any head injury or waking up at night with headache ADD Pt feels muscle ache with ritalin and she feels more headache also. Pt has ADD Pt stopped ritalin due to side effects. Pt also did not notice much improvement of her symptoms with ritalin migraine1 Pt has migraine headache for years pt denies any acute headache. Pt only has headache before her period. Pt doing ok with imitrex PRN Physical Pt needs annual physical. Pt has chronic migraine headache since 13 and she had normal MRI of brain when she was a teenager. Pt only has migraine before period and she only takes Imitrex before period which does well and she does not have any headache rest of the time Pt denies any head injury or waking up at night with headache Pt has difficulty with focus and concentration for several years. Pt is back in school for one year and she also works and she feels overwhelmed, unable to focus and concentrate and complete tasks. Pt has been struggling with school work. her previous MD did lab work two months ago which was all normal but they did not offer medication, Pt told me she tried her friend adderall which worked well for her symptoms Instructions Date Instruction Additional Infor mation Increase physical activity Relat ed to Encounter for general adult medical exam w abnormal findings Special diet education Related t o Body mass index (BMI) 24.0-24.9, adult Assessments Type Assessment Date No Information
--- OUTSIDE RECORDS SUMMARY | 2025-01-24 13:36 | XMS_ITS | Continuity of Care Document ---
Author Organization [facility] Address [address] [place] [address] Phone Care Team Providers Care Shell Sorter Name Role Phone Zack Durán MD Unavailable Unavailable Advance Directives Directive Yes / No Effective Date File Name No Information Encounters Encounter Description Practice Location Reason(s) For Visit Diagnoses Date Provider Providers Copied on Encounter [facility], [address] [place] [address], [id number], tel:[phone] [facility] No Information Sep-0 [phone] Leeanna Dixon. [address] [address], [place], [place], [id number] , [place]. tel: [phone] Family History Family Member Type Diagnosis Age At Onset No Information Payers Payer name Insurance type Covered republican ID Authoriza tion(s) No Information Social History Type Description Quantity Date Captured Comments Sex Female Smoking Status No Information Chief Complaint And Reason For Visit No Information Reason For Referral Reason For Referral No Information History Of Present Illness Encounter Date Complaint History Of Prese nt Illness No Information Functional Status Date Functional Assessmen t No Information Instructions Date Instruction Additional Infor mation No Information Assessments Type Assessment Date No Information Patient Care Teams Name Effective Dates (start - stop) Status Members No Information
--- NOTE | 2025-01-24 14:05 | OBADM ---
This patient, Sheridan Stone, admitted to the OB room 115 for observation for contraciton Patient/family oriented to hospital policies and general routines including ID bracelet, bed and alarms, visiting hours, pain management, procedures, bathroom and other care routines, personal items, smoking policy, room service/diet, and visiting hours. Patient/Family are encouraged to report perceived risks to care and to ask questions if they do not understand what they are told or what they should do.
[2025-01-24 14:12] LABS: Add Urine Microscopic? NO; Appearance Urine Clear (Clear); Bilirubin Urine Negative (Negative); Blood Urine Negative (Negative); Color Urine Yellow (Yellow); Glucose Urine UA Negative (Negative); Ketones Urine 3+ mg/dL (Negative); Leukocyte Esterase Ur Negative LEU/UL (Negative); Nitrate Urine Negative (Negative); Protein Urine Negative (Negative); Specific Grav Ur 1.016 (1.001-1.035); Urobilinogen Urine 0.2 mg/dL (<2.0); pH Urine 6.5 (5.0-9.0)
[2025-01-24] MEDS: TERBUTALINE SULFATE 1 MG/ML VIAL 0.25 MG SUB-Q (14:24)
[2025-01-24] MEDS: LACTATED RINGERS 1,000 ML 999 ML IV CONT (14:56)
[2025-01-24] MEDS: ONDANSETRON INJ 4 MG/2 ML VIAL IV PUSH (14:57)
[2025-01-24] MEDS: MAGNESIUM SULF 4 GM/WATER100ML 4 GM/100 ML BAG IVPB (15:22)
[2025-01-24] MEDS: AMPICILLIN 2 GM/NS 100 ML 2 GM/100 ML BAG IVPB (15:33)
[2025-01-24 15:35] LABS: Fetal Fibronectin Negative
[2025-01-24] MEDS: BETAMETHASONE SOD PHOS/ACETATE 30 MG/5 ML VIAL 12 MG IM (15:53)
[2025-01-24] MEDS: MAGNESIUM SULF 20GM/WATER500ML 500 ML 50 MG IV CONT (15:55)
--- NOTE | 2025-01-24 16:15 | P.HP_ITS ---
H&P: HPI History of Present Illness Date/Time: 01/24/25 16:15 Chief Complaint: labor symptoms Narrative: This is a 34-year-old 4 para 09/08/2002 whose last menstrual period was 06/13/2024, EDC is 03/20/2025, who presents at 32 weeks gestation with irregular contractions. She has a sick child at [place] and she has been not taking good care of herself. She denies loss of fluid or bleeding. She has had 2 previous term deliveries and and 1 delivery at 36 weeks. She denies bleeding or loss of fluid Review of Systems Review of Systems: Pertinent positives per HPI. Patient denies any fever, chills, rash, headache, visual changes, dizziness, chest pain, palpitations, nausea, vomiting, diarrhea, constipation, abdominal pain, or any urinary issues. [facility] Past Medical History Medical History Cluster headaches Surgical History Surgical History History of gynecological procedure 07/10/2020 - mirena iud insertion 04/25/2023 Removal History of tonsillectomy Hx of appendectomy Family History Family History Mother Cerebrovascular accident Other Intracranial aneurysm Malignant carcinoid tumor of lung Social History Social History Smoking status: Never smoker Alcohol intake: current Alcohol use details: socially Substance use: never Substance use type: does not use Do You Feel Safe in your Home?: Yes Lack of Transportation: No Lack of Food: Never True Current Housing: I Have Housing Concerned About Future Housing: No Difficulty Paying Gas/Electric Bills: No Difficulty Paying for Meds: No Currently Unemployed: No Education: Bachelor's Degree Difficulty w/ Childcare or Family Care: No Living arrangements: with family Occupation/Education: occupation 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 Gender identity (if verbalized by the patient): Female Sexual Orientation (if Verbalized by the Patient): Straight or Heterosexual Spiritual care concerns: No Meds Home Medications and Allergies Home Medications ?Medication ?Instructions ?Recorded ?Confirmed ?Type vits no.126-ferrous fum 1 tablet PO DAILY 03/05/24 01/24/25 History 28 mg iron-folic acid 800 mcg tablet (Classic ) Allergies Allergy/AdvReac Type Severity Reaction Status Date / Time No Known Allergies Allergy Verified 01/24/25 13:45 Vital Signs Vital Signs - 24 hr 01/24/25 13:44 01/24/25 14:00 01/24/25 14:02 Pulse Rate 105 H 98 Blood Pressure 113/79 117/70 Pulse Oximetry Oxygen Delivery Room Air 01/24/25 14:22 01/24/25 14:30 01/24/25 15:00 Pulse Rate 96 107 H 107 H Blood Pressure 113/60 114/63 79/58 L Pulse Oximetry Oxygen Delivery 01/24/25 15:03 01/24/25 15:26 01/24/25 15:30 Pulse Rate 113 H 114 H Blood Pressure 117/62 111/66 Pulse Oximetry 100 Oxygen Delivery 01/24/25 15:31 01/24/25 15:36 01/24/25 15:41 Pulse Rate Blood Pressure Pulse Oximetry 100 100 98 Oxygen Delivery 01/24/25 15:45 01/24/25 15:46 01/24/25 15:51 Pulse Rate 120 H Blood Pressure 105/57 L Pulse Oximetry 100 100 Oxygen Delivery 01/24/25 15:56 01/24/25 16:00 01/24/25 16:01 Pulse Rate 106 H Blood Pressure 104/60 Pulse Oximetry 100 100 Oxygen Delivery 01/24/25 16:06 01/24/25 16:11 Pulse Rate Blood Pressure Pulse Oximetry 99 100 Oxygen Delivery Exam Const: General: cooperative, healthy appearing, comfortable and average body habitus Orientation/consciousness: oriented to person, oriented to place and oriented to time Resp: Effort & Inspection: normal respiratory effort Cardio: Rate: regular rate Rhythm: regular rhythm Heart sounds: S1 normal heart sound present and S2 normal heart sound present GI: Inspection: normal to inspection (Gravid soft uterus) : External Female Exam: normal external appearance Speculum Exam - Vagina: normal appearance of the vagina Speculum Exam - Cervix: normal appearance of the cervix (Cervix 4cm soft by nurse exam. FHT is reassuring. Contractions irregular) H&P: Results Labs Labs: Urine 01/24/25 Range/Units 13:57 Urine Color Yellow (Yellow) Urine Appearance Clear (Clear) Urine pH 6.5 (5.0-9.0) Ur Specific [place] 1.016 (1.001-1.035) Urine Protein Negative (Negative) mg/dL Urine Glucose (UA) Negative (Negative) mg/dL Assessment and Plan Assessment and plan (1) with history of pre-term labor: Code(s): O09.219 - Supervision of with history of pre-term labor, unspecified trimester Status: Acute Plan In light of her cervix being 4cm have started magnesium Krystal own antibiotics and will consult with tertiary care center for transfer
--- NOTE | 2025-01-24 16:43 | P.DS_ITS ---
DS: Admitting Diagnosis Discharge Date 01/24/2025 Admitting Diagnosis labor DS: Discharge Diagnosis Discharge Diagnosis (1) with history of pre-term labor: Code(s): O09.219 - Supervision of with history of pre-term labor, unspecified trimester Status: Acute DS: Summary Hospital Course Reason for hospitalization: Patient was admitted with contractions at 32 weeks gestation Hospital Course: The cervix was noted to be 4cm admission patient received dose of terbutaline followed by initiation of magnesium sulfate. She received steroids and antibiotics was immediately referred to a tertiary [facility] bladder for cervical change. Time Spent with Patient Time attestation: Total time spent providing and/or coordinating discharge services: Exam Const: General: cooperative, healthy appearing, comfortable and average body habitus Orientation/consciousness: oriented to person, oriented to place and oriented to time Resp: Effort & Inspection: normal respiratory effort Cardio: Rate: regular rate Rhythm: regular rhythm Heart sounds: S1 normal heart sound present and S2 normal heart sound present GI: Inspection: normal to inspection (Gravid soft uterus) : External Female Exam: normal external appearance Speculum Exam - Vagina: normal appearance of the vagina Speculum Exam - Cervix: normal appearance of the cervix (Cervix 4cm soft by nurse exam. FHT is reassuring. Contractions irregular) DS: Data Data Completed and Pending Labs on day of discharge: Labs from last 24 hours 01/24/25 01/24/25 14:55 13:57 Urine Color Yellow Urine Appearance Clear Urine pH 6.5 Ur Specific [place] 1.016 Urine Protein Negative Urine Glucose (UA) Negative Urine Ketones 3+ H Ur Blood (Man) Negative Urine Nitrate Negative Urine Bilirubin Negative Urine Urobilinogen 0.2 Leukocyte Esterase Rfl Negative Fibronectin Negative Discharge Plan Discharge Attending physician on discharge: Brien Hilario Discharging Clinician: Brien Hilario Patient Disposition: Other Activity: pelvic rest Diet: heart healthy Wound Care Instructions: follow printed instructions Patient Instructions: Antibiotic Form Patient Language: Monegasque Stand Alone Forms: General Discharge Information Follow-up/Referrals: Brien Hilario MD [Physician] - Discharge Medications: No Action Classic 28 mg iron- 800 mcg Tablet 1 tablet PO DAILY Date of admission: 01/24/25 13:08 Primary Care Provider: Reji Mayfield Admitting Provider: Brien Hilario Attending physician on admission: Brien Hilario Condition: Stable
== END 2025-01-24 18:13 | disposition short-term general hospital (02) ==
PROVIDERS: Admitting Provider Obstetrics & Gynecology; PCP Emergency Medicine; Visit Provider Obstetrics & Gynecology
DX: O09.213 Supervision of pregnancy with history of pre-term labor, third trimester (principal); Z3A.32 32 weeks gestation of pregnancy
CPT/HCPCS: 36415; 81003; 82731; 96365; 96366; 96367; 96372; 96375; G0378; G0379; J0290; J0702; J2405; J3105; J3475; J7120